=== PATIENT | female | born 1960 | race African-American/Black ===

== ENCOUNTER 2017-03-06 23:04 | Inpatient (IN) ==
[2017-03-07] MEDS ORDERED: SODIUM CHLORIDE 0.9% 1,000 ML IV STA (00:05)
[2017-03-07] MEDS ORDERED: PANTOPRAZOLE 40 MG VIAL IV STA (00:05)
[2017-03-07] MEDS ORDERED: PANTOPRAZOLE 40 MG VIAL IV ONE (00:10)
[2017-03-07 01:18] LABS: Alanine Aminotransferase 26 U/L (13-56); Albumin 3.7 G/DL (3.4-5.0); Alkaline Phosphatase 64 U/L (45-117); Aspartate Amino Transferase 19 U/L (0-37); Bilirubin,Total < 0.39 MG/DL (0.2-1.0); Blood Urea Nitrogen 8 MG/DL (7-18); Calcium 8.9 MG/DL (8.5-10.1); Glucose 98 MG/DL (74-106); Potassium 3.7 MMOL/L (3.5-5.1); Sodium 143 MMOL/L (136-145); Total Protein 7.2 G/DL (6.4-8.3)
--- NOTE | 2017-03-07 01:23 | EKG Report ---
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
[2017-03-07 01:32] LABS: Basophils % 0.6 % (0.0-0.8); Eosinophils # 0.1 10*3/uL (0.0-0.87); Eosinophils % 0.9 % (0.00-10.9); Hematocrit 34.3 VOL% (35.7-47.0); Hemoglobin 11.3 GM/DL (12.0-16.0); Immature Granulocytes % 0.6 %; Immature Granulocytes Absolute 0.04 #; Lymphocytes # 1.8 10*3/uL (1.4-4.0); Mean Corpuscular HGB Conc 32.9 GM/DL (32-36); Mean Corpuscular Hemoglobin 30 PG (27-34); Mean Corpuscular Volume 91.5 FL (87-102); Monocytes # 0.7 10*3/uL (0.11-0.8); Neutrophils % 60.9 % (38.7-73.9); Platelet Count 203 T/CUMM (130-400); Red Blood Count 3.75 MC/CUMM (3.8-5.5); Red Cell Distribution Width 12.5 % (9.3-17.3); White Blood Count 6.6 T/CUMM (4-12)
[2017-03-07] MEDS ORDERED: ONDANSETRON 4 MG/2 ML VIAL IV STA (03:19)
[2017-03-07] MEDS ORDERED: ALUM/MAG/SIMETH/LIDO VISC 1:1 30 ML BOTTLE PO STA (03:20)
[2017-03-07] MEDS ORDERED: ALUM/MAG/SIMETH/LIDO VISC 1:1 30 ML BOTTLE PO ONE (03:25)
[2017-03-07] MEDS ORDERED: ONDANSETRON 4 MG/2 ML VIAL ONE (03:25)
--- NOTE | 2017-03-07 03:48 | Emergency Department Note ---
Arrival - Arrival Chief Complaint: Abdominal / Flank Pain Stated Complaint: severe nausea and discomfort reflux in chest ED Nursing Triage Note: C/O Upper abd pain. Onset Friday. Pt reports that her stomach feels raw inside. Reports taking prescribed meds without relief. +nausea /vomiting. Last BM-2 days ago. Pt reports using an enema to have BM today. Denies fever. Pt reports that she had surgery last Friday to remove bladder sling- Surgery performed at [facility] Mode of Arrival: Ambulatory Time Seen by Provider: 03/07/17 02:33 - History of Present Illness HPI Narrative: This is a 56-year-old female of descent with a history of mitral valve prolapse syndrome kidney stones, gastroesophageal reflux disease, hypothyroidism , anemia, who presents with epigastric abdominal pain radiating to the chest associated with nausea and vomiting. Patient has not had black stools. There is no back pain. There is no diaphoresis nor shortness of breath. She has a history of esophageal stricture which was dilated and biopsies were taken. Date of Last Menstrual Period: PM Allergies/Adverse Reactions: Allergies Allergy/AdvReac Type Severity Reaction Status Date / Time No Known Allergies Allergy Verified 07/02/15 07:57 Home Medications: Home Medications Medication Instructions Recorded Confirmed Type Esomeprazole Magnesium [Nexium] 40 mg PO DAILY 09/25/16 03/06/17 History Citalopram [CeleXA] 20 mg PO DAILY 09/27/16 03/06/17 History Linaclotide [Linzess] 290 mcg PO DAILY 09/27/16 03/06/17 History Pravastatin [Pravachol] 40 mg PO BEDTIME 03/06/17 03/06/17 History Review of System - Review of System Constitutional: Absent: fever, night sweats Eyes: Absent: redness, vision change Head/Ears/Nose/Throat: Absent: earache, epistaxis Cardiovascular: Present: chest pain. Absent: dyspnea on exertion Gastrointestinal: Present: nausea, vomiting. Absent: diarrhea Genitourinary female: Present: dysuria, urgency Musculoskeletal: Absent: joint swelling, lower back pain Skin: Absent: rash Neurological: Absent: numbness, paresthesias Psychiatric: Absent: anxiety, depression Endocrine: Absent: polydipsia, polyuria Hematological/Lymphatic: Absent: easy bruising, lymphadenopathy Allergic/Immunologic: Absent: urticaria, itchy eyes Medical,Surgical,& Family Hx - Medical History Cardio: History of: Cardiac Dysrhythmia, Cardiovascular Problems (mitral valve prolapse) No history of: Hypertension Psychological: History of: Anxiety Disorders, Depression Neurology: No history of: Seizures Endocrine: History of: Thyroid Disorder (has been on thyroid med in past. had reaction) Genitourinary: History of: Kidney Stones Gastrointestinal: History of: GERD, Hemorrhoids, GI Problems (dysphagia) No history of: Hepatitis, Liver Problems Hematology: History of: Anemia No history of: Blood Transfusion Reaction Reproductive: History of: Endometriosis Other: No history of: Anesthesia Reactions, Cancer - Surgical History Cardiac Surgeries: Patient Denies: Cardiac Catheterization HEENT Surgeries: Patient denies: Eye Surgery, Thyroid Surgery, Tonsilectomy & Adenoidectomy Abdominal Surgeries: Surgical HX of: EGD Patient denies: Abdominal Surgery, Appendectomy, Cholecystectomy Reproductive Surgeries: Surgical HX of;: Gynecologic Surgery, Hysterectomy ( left ovary removed) Patient denies;: Breast Surgery, Genitourinary Surgery Orthopedic Surgeries: Surgical HX of;: Orthopedic Surgery (shoulder surgery) - Family History Family History: Denies;: Family Cancer - Social History Smoking Status: Never smoker Frequency of Alcohol Use: None Type of Drug Use: None Exam Vital Signs: Vital Signs Temperature 98.7 F 03/07/17 00:28 Pulse Rate 84 03/07/17 04:07 Respiratory Rate 20 03/07/17 04:07 Blood Pressure 139/84 03/07/17 04:07 O2 Sat by Pulse Oximetry 99 03/07/17 04:07 - Eye Eye exam: Present: PERRL, EOMI - Neck Neck exam: Present: normal inspection, full ROM - Chest Chest inspection: Present: normal inspection - Respiratory Respiratory exam: Present: normal lung sounds bilaterally - Cardiovascular Cardiovascular exam: Present: regular rate, normal rhythm - Abdominal Exam Abdominal exam: Present: other (Epigastric tenderness without guarding or rebound) - Extremities Exam Extremities exam: Present: normal inspection, full ROM - Back Exam Back exam: Present: normal inspection - Neurological Exam Neurological exam: Present: alert, oriented X3, CN II-XII intact - Psychiatric Psychiatric exam: Present: normal affect, normal mood - Skin Skin exam: Present: warm, dry Course Course Narrative: The laboratory tests are normal. 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 Although it appears that the patient's symptoms are more likely to be due to esophageal reflux disease case was discussed with the surgeon who agreed to admit the patient to the hospital for further evaluation. Results - Labs CBC & BMP: 03/07/17 00:15 03/07/17 00:15 Disposition Clinical Impression: Abdominal pain Disposition: Still a Patient Additional Instructions: The laboratory tests are normal. 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 Although it appears that the patient's symptoms are more likely to be due to esophageal reflux disease case was discussed with the surgeon who agreed to admit the patient to the hospital for further evaluation.
[2017-03-07] MEDS ORDERED: ONDANSETRON 4 MG/2 ML VIAL IV PRN (04:13)
[2017-03-07] MEDS ORDERED: ACETAMINOPHEN 325 MG TABLET PO PRN (04:13)
[2017-03-07] MEDS: DEXTROSE 5% LACTATED RINGERS 1,000 ML IV SCH ×3 (05:22→22:05)
--- NOTE | 2017-03-07 07:26 | CT Report ---
CT abdomen pelvis Indication: Pancreatitis Comparison: 13 September 2014 Technique: Axial CT imaging of the abdomen and pelvis is performed with intravenous contrast. Contrast dose is 100 cc of Omnipaque 350. Findings: Left lower lung nodule is present similar to previous CT. Otherwise the cardiac and lung bases are within normal limits. CT abdomen: The liver spleen pancreas and adrenal glands are normal in size and enhancement. No evidence of focal lesion is demonstrated in these solid organs. Kidneys are normal in size and enhancement. Nonobstructing right renal calculi are present similar to previous exam evidence of hydronephrosis or nephrolithiasis is seen. The bowel caliber is normal and no wall thickening or adjacent inflammatory change is seen. No evidence of free fluid or free air is present. Appendix appears normal. There is narrowing of the origin of the celiac axis, appears more prominent than on previous examination. CT pelvis: The pelvic bowel appears within normal limits. Bladder shows no evidence of abnormality. The pelvic organs show no evidence of abnormality Impression: No definite evidence of acute findings demonstrated. Narrowing of the celiac axis origin, increased from previous study could be position related. No other acute findings seen. This CT exam was performed using one or more the following dose reduction techniques: Automated exposure control, adjustment of the MA and/or KV according to patient size, or use of iterative reconstruction technique. PROCEDURE INTERPRETED AT [facility] DEPARTMENT OF RADIOLOGY Final Report Signed by: Dr. Grover Loera
--- NOTE | 2017-03-07 08:06 | EKG Report ---
Stationary ECG Study 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
--- NOTE | 2017-03-07 08:13 | General Surg History&Physical ---
Assessment and Plan (1) Abdominal pain Status: Acute Assessment and plan: This patient reports postprandial abdominal pain that started yesterday and she does have some narrowing of her celiac axis on her CT scan. Median arcuate ligament syndrome certainly is a possibility with this is a very rare entity and must be a diagnosis of exclusion. I will discuss this with interventional radiologist on-call to see if they would be willing to do inspiration and expiration arteriograms to see if this is a component of her disease. I think it would also be worthwhile to get gastroenterology involved and also get an ultrasound and potentially HIDA scan of her gallbladder to look at all the possibilities for what caused her pain. No intervention from surgical standpoint is planned today. Current Visit: Yes History of Present Illness Chief complaint: Abdominal pain History of present illness: Ms. Mcginnis is a 56 year old female who is admitted with abdominal pain postprandial with nausea. She had a bladder sling removed last week. She has not been feeling well since then but the pain worsened yesterday in her stomach and she came to the ER for evaluation. She had a CT scan of her abdomen and pelvis that showed some narrowing of her celiac origin and this was worse than the study that was done about 2 years ago in 2015. It was not occlusive. She has not tried to eat since yesterday and this happened after she try to eat a salad. Home Medications Medication Instructions Recorded Confirmed Type Esomeprazole Magnesium [Nexium] 40 mg PO DAILY 09/25/16 03/06/17 History Citalopram [CeleXA] 20 mg PO DAILY 09/27/16 03/06/17 History Linaclotide [Linzess] 290 mcg PO DAILY 09/27/16 03/06/17 History Pravastatin [Pravachol] 40 mg PO BEDTIME 03/06/17 03/06/17 History Allergies Allergy/AdvReac Type Severity Reaction Status Date / Time No Known Allergies Allergy Verified 07/02/15 07:57 Medical,Surgical,& Family Hx - Medical History Cardio: History of: Cardiac Dysrhythmia, Cardiovascular Problems (mitral valve prolapse) No history of: Hypertension Psychological: History of: Anxiety Disorders, Depression Neurology: No history of: Seizures Endocrine: History of: Thyroid Disorder (has been on thyroid med in past. had reaction) Genitourinary: History of: Kidney Stones Gastrointestinal: History of: GERD, Hemorrhoids, GI Problems (dysphagia) No history of: Hepatitis, Liver Problems Hematology: History of: Anemia No history of: Blood Transfusion Reaction Reproductive: History of: Endometriosis Other: No history of: Anesthesia Reactions, Cancer - Surgical History Cardiac Surgeries: Patient Denies: Cardiac Catheterization HEENT Surgeries: Patient denies: Eye Surgery, Thyroid Surgery, Tonsilectomy & Adenoidectomy Abdominal Surgeries: Surgical HX of: EGD Patient denies: Abdominal Surgery, Appendectomy, Cholecystectomy Reproductive Surgeries: Surgical HX of;: Gynecologic Surgery, Hysterectomy ( left ovary removed) Patient denies;: Breast Surgery, Genitourinary Surgery Orthopedic Surgeries: Surgical HX of;: Orthopedic Surgery (shoulder surgery) - Family History Family History: Denies;: Family Cancer - Social History Smoking Status: Never smoker Frequency of Alcohol Use: None Type of Drug Use: None Exam - Constitutional Vitals: Period Temp Pulse Resp BP Sys/Garrido Pulse Ox Last 24 Hr 98.7 F-99.2 F 80-99 16-20 108-139/72-87 98-100 General appearance: no acute distress, over weight - Head Head exam: Present: normal inspection, normocephalic - Eye Eye exam: Present: EOMI Pupils: Present: MO - ENT ENT exam: Present: normal exam Mouth exam: Present: normal external inspection, normal voice - Neck Neck exam: Present: normal inspection, trachea midline - Respiratory Respiratory exam: Present: clear to auscultation bilaterally. Absent: accessory muscle use, chest wall tenderness - Cardiovascular Cardiovascular exam: Present: RRR. Absent: systolic murmur, tachycardia - GI/Abdominal GI/Abdominal exam: Present: normal bowel sounds, soft. Absent: tenderness, rebound - Extremities Exam Extremities exam: Present: normal inspection, normal capillary refill - Back Exam Back exam: Present: normal inspection - Neurological Exam Neurological exam: Present: alert, oriented X3 Speech: Present: normal - Skin Skin exam: Present: normal color, warm - Constitutional Constitutional: Present: as per HPI - EENT Nose, mouth and throat: Present: as per HPI - Cardiovascular Cardiovascular: Present: as per HPI - Respiratory Respiratory: Present: as per HPI - Gastrointestinal Gastrointestinal: Present: as per HPI - Genitourinary Genitourinary: Present: as per HPI - Musculoskeletal Musculoskeletal: Present: as per HPI - Neurological Neurological: Present: as per HPI - Endocrine Endocrine: Present: as per HPI Hematologic/Lymphatic: Present: as per HPI Quality Measures - VTE Contraindication to Pharmacological VTE Prophylaxis: High Risk of Bleeding Results - Labs CBC & BMP: 03/07/17 00:15 03/07/17 00:15
[2017-03-07] MEDS: PANTOPRAZOLE 40 MG TABLET PO SCH (08:43)
--- NOTE | 2017-03-07 10:45 | Ultrasound Report ---
Right upper quadrant ultrasound Indication: Abdominal Pain Findings: The liver is normal in size and echogenicity. The gallbladder is fluid-filled without evidence of stones or sludge. The gallbladder wall thickness is 1.0 mm . The common bile duct measures 1.0 mm. The visualized portion of the pancreas appear within normal limits The right kidney is normal in size and echogenicity and measures 10.4 cm . No free fluid or free air seen. Impression: No evidence of abnormality demonstrated. Ultrasound images stored and captured. PROCEDURE INTERPRETED AT [facility] DEPARTMENT OF RADIOLOGY Final Report Signed by: Dr. Grover Loera
--- NOTE | 2017-03-07 11:22 | Event Note ---
Interventional radiology consult note: Ms. Mcginnis is a pleasant 56-year-old female who has history of esophageal stricture and is getting yearly EGD with esophageal dilatation reportedly last done in September of this year by Dr. Luis Manuel Morales. She was admitted with abdominal pain which she describes as a "raw" feeling primarily within the central upper abdomen. She also reports reflux. She has had some nausea and minimal vomiting as well. Today the pain is reportedly better with most complaints related to her midline chest, possibly related to reflux or hernia history of esophageal stricture and/or dilatation. She does report that she has had some association of eating with her abdominal pain although this is not consistent on a daily basis. Additionally she has gained approximately 5 pounds in the last 6 months. She does not take any narcotic pain medicine for her abdominal discomfort. At times she will take antacids or Carafate solution with some improvement. She does report that this episode of her abdominal discomfort is the worst is ever been but she has had similar issues for at least 6 months if not somewhat longer. She also reports chronic constipation. Recently, she just had bladder suspension surgery reversal and has chronic UTIs and is on chronic antibiotics for this. Her imaging is suspicious for median arcuate ligament syndrome with severe (85% ) stenosis at the proximal celiac artery, which appears somewhat progressed when compared to the [address]. Additionally, there is no suggestion of any significant atherosclerotic disease within the vasculature as the cause of the stenosis. No diarrhea. Physical exam demonstrates minimal tenderness in the epigastric region but is otherwise negative. She has no fevers and is not short of breath. ROS otherwise negative. Assessment/plan: 1. Abdominal pain: Given her somewhat complicated GI history of esophageal strictures and recurrent UTIs with chronic antibiotic therapy, possibility of other factors contributing to her abdominal pain are noted. GI consult is in process. She may need a barium esophagram. Right upper quadrant ultrasound is negative. 2. Celiac artery stenosis: Although the images are suspicious for an underlying median arcuate ligament syndrome, the history does not completely correlate. However, if all other studies prove negative, inspiratory and expiratory angiography may be necessary to completely exclude this possibility. If this is the case, stenting is not indicated and surgical release would be needed.
--- NOTE | 2017-03-07 11:54 | Gastrointestinal Consult Note ---
<Alexus Hagan - Last Filed: 03/07/17 11:52> Assessment and Plan (1) Abdominal pain Status: Acute Assessment and plan: 03/07-sudden onset of abdominal pain with associated nausea. CT findings noted as below. Ultrasound also noted as below. HIDA scan is pending at this time. We will tentatively plan for EGD on Friday to further evaluate. Plan an addendum to followed by Dr. Morales. Current Visit: Yes History of Present Illness Chief complaint: Abdominal pain History of present illness: Ms. Mcginnis is a 56 year old female who was admitted to the hospital early this morning with complaints of abdominal pain beginning yesterday. Patient has a prior history of mitral valve prolapse, kidney stones, GERD, anemia, hypothyroidism. Patient states she has her usual state of health until yesterday when after eating a salad she began not feeling well. She states that ultimately she has not felt well for the past week Yesterday She Had an Onset of Abdominal Pain that was associated with nausea. She states that the pain was severe in nature, located primarily in the mid upper abdomen, however she had no changes in her bowel habits with this. She denies any fever or chills associated with this. She denies any recent weight loss, melena, hematochezia. She states the pain continued throughout the day and she came in early this morning. On admission, she had a CT of the abdomen with contrast which showed no acute findings other than a narrowing of the celiac at 6 origin which was a change from a prior CT study. She has had an abdominal ultrasound done this morning as well with no abnormalities and she is currently undergoing a HIDA scan. Dr. Brumfield was consulted and has discussed with interventional radiology regarding proceeding with possible inspiration/expiration arteriogram due to the findings of the CT. At this time he continues further testing to rule out other possibilities of sources for her pain. She has had prior endoscopy done by Dr. Morales with last known EGD in September of this year with findings of GERD and esophageal stricture with dilation. Patient has had multiple dilations in the past for dysphagia. Home Medications Medication Instructions Recorded Confirmed Type Esomeprazole Magnesium [Nexium] 40 mg PO DAILY 09/25/16 03/06/17 History Citalopram [CeleXA] 20 mg PO DAILY 09/27/16 03/06/17 History Linaclotide [Linzess] 290 mcg PO DAILY 09/27/16 03/06/17 History Pravastatin [Pravachol] 40 mg PO BEDTIME 03/06/17 03/06/17 History Allergies Allergy/AdvReac Type Severity Reaction Status Date / Time No Known Allergies Allergy Verified 07/02/15 07:57 Medical,Surgical,& Family Hx - Medical History Cardio: History of: Cardiac Dysrhythmia, Cardiovascular Problems (mitral valve prolapse) No history of: Hypertension Psychological: History of: Anxiety Disorders, Depression Neurology: No history of: Seizures Endocrine: History of: Thyroid Disorder (has been on thyroid med in past. had reaction) Genitourinary: History of: Kidney Stones Gastrointestinal: History of: GERD, Hemorrhoids, GI Problems (dysphagia) No history of: Hepatitis, Liver Problems Hematology: History of: Anemia No history of: Blood Transfusion Reaction Reproductive: History of: Endometriosis Other: No history of: Anesthesia Reactions, Cancer - Surgical History Cardiac Surgeries: Patient Denies: Cardiac Catheterization HEENT Surgeries: Patient denies: Eye Surgery, Thyroid Surgery, Tonsilectomy & Adenoidectomy Abdominal Surgeries: Surgical HX of: EGD Patient denies: Abdominal Surgery, Appendectomy, Cholecystectomy Reproductive Surgeries: Surgical HX of;: Gynecologic Surgery, Hysterectomy ( left ovary removed) Patient denies;: Breast Surgery, Genitourinary Surgery Orthopedic Surgeries: Surgical HX of;: Orthopedic Surgery (shoulder surgery) - Family History Family History: Denies;: Family Cancer - Social History Smoking Status: Never smoker Frequency of Alcohol Use: None Type of Drug Use: None 12 point system: reviewed and no additional remarkable complaints except as stated - Constitutional Constitutional: Present: as per HPI - EENT Eyes: Present: as per HPI Ears: Present: as per HPI Nose, mouth and throat: Present: as per HPI - Cardiovascular Cardiovascular: Present: as per HPI - Respiratory Respiratory: Present: as per HPI - Gastrointestinal Gastrointestinal: Present: as per HPI, abdominal pain, nausea - Genitourinary Genitourinary: Present: as per HPI - Musculoskeletal Musculoskeletal: Present: as per HPI - Neurological Neurological: Present: as per HPI - Psychiatric Psychiatric: Present: as per HPI - Endocrine Endocrine: Present: as per HPI - Hematologic/Lymphatic Hematologic/Lymphatic: Present: as per HPI Exam - Constitutional Vitals: Period Temp Pulse Resp BP Sys/Garrido Pulse Ox Last 24 Hr 98.7 F-99.2 F 80-99 16-20 108-139/72-87 98-100 General appearance: normal weight, no acute distress - Head Head exam: Present: normal inspection, normocephalic - Eye Eye exam: Present: other (Lids and conjunctival are unremarkable). Absent: scleral icterus - ENT ENT exam: Present: normal exam, normal oropharynx - Neck Neck exam: Present: normal inspection - Respiratory Respiratory exam: Present: clear to auscultation bilaterally. Absent: rales, rhonchi, wheezes - Cardiovascular Cardiovascular exam: Present: regular rate and rhythm. Absent: diastolic murmur , JVD, systolic murmur - GI/Abdominal GI/Abdominal exam: Present: normal bowel sounds, soft. Absent: ascites, distended, mass, organomegaly, tenderness - Extremities Exam Extremities exam: Present: normal inspection, full ROM - Back Exam Back exam: Present: normal inspection - Neurological Exam Neurological exam: Present: alert, oriented X3 - Psychiatric Psychiatric exam: Present: normal affect, normal mood - Skin Skin exam: Present: normal color, warm, dry Results - Labs CBC & BMP: 03/07/17 00:15 03/07/17 00:15 Lab Results: I have reviewed the past 24 hour labs - Diagnostic Findings Procedure: CT Abdomen and Pelvis: report reviewed by me, Ultrasound: report reviewed by me Quality Measures - VTE Contraindication to Pharmacological VTE Prophylaxis: High Risk of Bleeding <Vinny Morales - Last Filed: 03/07/17 13:04> History of Present Illness Chief complaint: 3030 History of present illness: Ms. Mcginnis is a 56 year old female Exam - Constitutional Vitals: Period Temp Pulse Resp BP Sys/Garrido Pulse Ox Last 24 Hr 98.7 F-99.2 F 80-99 16-20 108-139/72-87 98-100 Results - Labs CBC & BMP: 03/07/17 00:15 03/07/17 00:15
--- NOTE | 2017-03-07 12:53 | Nuclear Medicine Report ---
Hepatobiliary Scan with Ejection Fraction Date Performed: 03/05/2017 Radiopharmaceutical: 5 mCi Tc-99m Mebrofenin I.V. 8 ounces ensure was administered orally. Clinical Information: 56 years old Female with crampy abdominal pain and history of esophageal stricture status post dilatation with nausea and some vomiting. Gallbladder ultrasound is negative. Comparison: None Technique: Two minute dynamic images were obtained for 60 minutes after injection of tracer. Findings: Normal radiotracer uptake throughout hepatic parenchyma with excretion and visualization of the gallbladder at 15-20 minutes. There is also visualization of small bowel at 20-25 minutes compatible with patent common duct. The computed gallbladder ejection fraction is 32% (normal is greater than or equal to 38%) Conclusion: Nonspecific mildly reduced gallbladder ejection fraction, possibly due to recent limited p.o. intake. No evidence of cystic or common duct obstruction. PROCEDURE INTERPRETED AT [facility] DEPARTMENT OF RADIOLOGY Final Report Signed by: Jose Steve
[2017-03-07 14:20] LABS: Apearance,Urine CLEAR (Clear); Bilirubin,Urine Negative (Negative); Blood, Urine Small mg/dL (Negative); Glucose,Urine (UA) Negative (Negative); Ketones,Urine Negative (Negative); Mucus,Urine Occasional /LPF (Occasional); Nitrite,Urine Negative (Negative); Protein,Urine Negative; RBC,Urine 8 /HPF (0-4); Squamous Epithelial Cell,Urine Occasional /HPF (0-10); Urine Color Straw (Yellow); Urine Specific Gravity 1.009 (1.001-1.035); Urine Urobilinogen < 2.0 EU/DL (0.2-1.0); WBC,Urine 4 /HPF (0-6)
[2017-03-08] MEDS: DEXTROSE 5% LACTATED RINGERS 1,000 ML IV SCH (06:48)
[2017-03-08] MEDS: PANTOPRAZOLE 40 MG TABLET PO SCH (08:49)
--- NOTE | 2017-03-08 17:13 | Event Note ---
03/08/2017 Patient is doing better nontender complaining of no nausea or discomfort. We will advance her to some full liquids and see how she does at this time. Biliary workup has been negative and she is scheduled for an EGD on Friday.
[2017-03-09] MEDS: DEXTROSE 5% LACTATED RINGERS 1,000 ML IV SCH ×3 (00:40→08:50)
--- NOTE | 2017-03-09 07:46 | Gastrointestinal Progress Note ---
Assessment and Plan - Time spent with patient Time spent with patient: Greater than 30 minutes (1) Abdominal pain Status: Acute Current Visit: Yes (2) Other specified counseling Status: Acute Current Visit: Yes Exam (Progress Note) - Constitutional Vitals: Period Temp Pulse Resp BP Sys/Garrido Pulse Ox Last 24 Hr 97.0 F-99.3 F 64-87 18-20 103-121/65-87 95-99 Results - Labs CBC & BMP: 03/07/17 00:15 03/07/17 00:15 Note Addendum: PLEASE NOTE -- automatic citation of patient information is unavoidable in this electronic note. I have made a reasonable effort to review the information cited , but it is not a part of my evaluation, impression, or recommendation unless specifically discussed in the dictated text that follows. As well, voice recognition software was used in the creation of this clinical note. Reasonable effort was made to identify and correct gross errors. Despite proofreading, errors in balance bridge inspector may be present, including nonsense verbiage at times. If you encounter such an error, please contact me at for discussion and correction. -- Mark Chief complaint: abdominal pain Subjective: the patient is a 56-year-old female seen for follow-up of abdominal pain. The patient reports feeling better this morning. She is tolerating a clear liquid diet without difficulty. She is having bowel movements that are normal. She is anticipating upper endoscopy tomorrow. Medications: Tylenol, activated ringers, Sweet Water, Zofran, Protonix Review of Symptoms: 12 point review of symptoms was negative except as noted above Physical examination: Vital Signs: Current vital signs reviewed. General Appearance: lying in bed. Comfortable. No apparent distress. Head: Normocephalic. Eyes: no scleral icterus. No scleral injection. No conjunctival pallor. Oral Cavity: Odor of breath was normal. No drooling was observed. Lips showed no abnormalities. Lungs: Respiration rhythm and depth was normal. Cardiovascular: Heart rate and rhythm were normal. Abdomen: abdomen was not distended. Abdominal auscultation revealed no abnormalities. Ascites was not discovered. Abdominal palpation revealed no tenderness and no hepatosplenomegaly. Musculoskeletal System: musculoskeletal system was grossly normal. Neurological: level of consciousness was normal. Speech was normal. No coordination/cerebellum abnormalities were noted. Skin: Gen. appearance was normal. Color and pigmentation were normal. No skin lesions were appreciated. Laboratory: no new labs today Radiology: -- HIDA scan, 03/07/17: nonspecific mildly reduced gallbladder ejection fraction ; no evidence of cystic or common duct obstruction -- abdominal ultrasound, 03/07/17: no evidence of abnormality -- CT of the abdomen and pelvis, 03/07/17: no definite evidence of acute findings ; narrowing of the celiac axis origin Impressions: #1. Abdominal pain -- the patient is improving significantly compared to her admission. We will proceed with upper endoscopy as scheduled and follow-up with further recommendations as indicated. #2. Other specified counseling -- Patient seen for greater than 30 minutes. Greater than 50% of this time was spent counseling regarding differential diagnosis, likely diagnosis,, diagnostic and therapeutic options, risks, benefits, and alternatives to procedures and medications, informed consent, and plan of care generally. Patient has expressed understanding and wishes to proceed. Recommendations: -- continue supportive care -- continued clear liquid diet -- upper endoscopy tomorrow -- we will continue to follow with you. Dr. Morales will resume G.I. care for this patient tomorrow
[2017-03-09] MEDS: PANTOPRAZOLE 40 MG TABLET PO SCH (08:48)
--- NOTE | 2017-03-09 10:47 | Event Note ---
03/09/2017 1030 hrs. Patient is doing well with minimal discomfort tolerating her full liquids without problems. She apparently scheduled for an EGD in the morning and disposition related to that.
[2017-03-10] MEDS: DEXTROSE 5% LACTATED RINGERS 1,000 ML IV SCH ×5 (00:28→14:43)
[2017-03-10 06:08] LABS: Basophils % 0.6 % (0.0-0.8); Eosinophils # 0.1 10*3/uL (0.0-0.87); Eosinophils % 1.7 % (0.00-10.9); Hemoglobin 10.8 GM/DL (12.0-16.0); Immature Granulocytes % 0.4 %; Immature Granulocytes Absolute 0.02 #; Lymphocytes # 1.8 10*3/uL (1.4-4.0); Lymphocytes % 34.2 % (21.3-54.2); Mean Corpuscular HGB Conc 32.7 GM/DL (32-36); Mean Corpuscular Hemoglobin 30 PG (27-34); Mean Corpuscular Volume 90.9 FL (87-102); Mean Platelet Volume 10.3 FL (9.6-12.0); Monocytes # 0.5 10*3/uL (0.11-0.8); Monocytes % 10.1 % (1.7-12.7); Neutrophils # 2.8 10*3/uL (1.4-7.4); Platelet Count 178 T/CUMM (130-400); Red Blood Count 3.63 MC/CUMM (3.8-5.5); Red Cell Distribution Width 12.3 % (9.3-17.3); White Blood Count 5.3 T/CUMM (4-12)
[2017-03-10 06:48] LABS: Albumin 2.9 G/DL (3.4-5.0); Bilirubin,Total 0.5 MG/DL (0.2-1.0); Osmolality,Calculated 281.8 MOS/KG (273-304); Potassium 3.7 MMOL/L (3.5-5.1); Total Protein 5.9 G/DL (6.4-8.3)
--- NOTE | 2017-03-10 07:18 | General Surgery Progress Note ---
Assessment and Plan (1) Abdominal pain Status: Acute Assessment and plan: Plan for endoscopy today. Patient may benefit from inspiration and expiration arteriograms to evaluate for median arcuate ligament syndrome if endoscopy is negative. I do not think her minimally decreased ejection fraction explains the pain that she is having. Current Visit: Yes Subjective Patient reports: Present: no new complaints, still having pain, tolerating liquids well, afebrile. Absent: nausea, vomiting Narrative: HIDA scan demonstrates ejection fraction of 32% on Friday. Gallbladder ultrasound was negative. Exam - Constitutional Vitals: Period Temp Pulse Resp BP Sys/Garrido Pulse Ox Last 24 Hr 97.5 F-99.0 F 60-79 18-20 105-128/63-79 94-98 General appearance: no acute distress, over weight - Head Head exam: Present: normal inspection, normocephalic - Eye Eye exam: Present: EOMI Pupils: Present: MO - ENT ENT exam: Present: normal exam Mouth exam: Present: normal external inspection, normal voice - Neck Neck exam: Present: normal inspection, trachea midline - Respiratory Respiratory exam: Present: clear to auscultation bilaterally. Absent: accessory muscle use, chest wall tenderness - Cardiovascular Cardiovascular exam: Present: RRR. Absent: systolic murmur, tachycardia - GI/Abdominal GI/Abdominal exam: Present: soft. Absent: tenderness, rebound - Extremities Exam Extremities exam: Present: normal inspection, normal capillary refill - Back Exam Back exam: Present: normal inspection - Neurological Exam Speech: Present: normal - Skin Skin exam: Present: normal color, warm Results - Labs CBC & BMP: 03/10/17 05:40 03/10/17 05:40 Quality Measures - VTE Contraindication to Pharmacological VTE Prophylaxis: High Risk of Bleeding
[2017-03-10] MEDS: PANTOPRAZOLE 40 MG TABLET PO SCH (09:33)
[2017-03-10] MEDS ORDERED: LIDOCAINE 2% 5 ML VIAL ONE (11:05)
[2017-03-10] MEDS ORDERED: PROPOFOL 200 MG/20 ML VIAL IV ONE (11:05)
--- NOTE | 2017-03-10 11:17 | Operative Note ---
Date of procedure: 03/10/17 Pre-op diagnosis: Epigastric pain Procedure: EGD 56-year-old female with persistent epigastric pain now for upper endoscopy to further evaluate. Informed consent was obtained the patient She was sedated with general anesthesia per anesthesia protocol. Patient placed left lateral decubitus position the Olympus flexible video upper endoscope was inserted into the oral cavity under direct vision the esophagus was intubated. Findings Esophagus-normal proximal mid esophageal mucosa distal esophagus with small hiatal hernia no significant esophagitis or stricture was seen Stomach-normal insufflation normal mucosa to direct retroflexed views of the body fundus cardia and antrum the stomach. Pylorus-normal Duodenum-normal from the bulb and duodenum to the third portion of the duodenum. The procedure was terminated placed our procedure well she is discharge recovery in good condition. Postop diagnosis: 1. Gastroesophageal reflux disease with small hiatal hernia-continue PPI treatment and antireflux precautions. Anesthesia: other (General) Surgeon / Physician: Vinny Morales Estimated blood loss: none Specimens: none sent Condition: stable Disposition: post procedure unit Results - Labs CBC & BMP: 03/10/17 05:40 03/10/17 05:40 Discharge Plan - Discharge Medications No Action Esomeprazole Magnesium [Nexium] 40 mg PO DAILY Citalopram [CeleXA] 20 mg PO DAILY Linaclotide [Linzess] 290 mcg PO DAILY Pravastatin [Pravachol] 40 mg PO BEDTIME - Follow Up or Referral - Forms/Instructions
--- NOTE | 2017-03-10 11:23 | Anesthesia Post-Op ---
Anesthesia Post OP - Post Ansesthetic Evaluation Patient seen in post op: Yes Resp: within normal limits CV: within normal limits Mental: within normal limits Temp: within normal limits Ozsu-[id number]-Dvrlegbio: within normal limits Nausea and Vomiting: within normal limits Pain: within normal limits
--- NOTE | 2017-03-10 14:20 | Discharge Summary ---
Hospital Course - Hospital Course Hospital Course: Patient is a 56-year-old female who presented to the hospital with persistent postprandial epigastric pain associated with nausea. 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 Considering the rarity of the this condition, further evaluation was performed to rule out other etiologies of her pain. Abdominal ultrasound revealed no significant findings, and HIDA scan revealed minimally reduced gallbladder function with an EF of 32% . Patient has a history of esophageal stricture requiring dilatation in the past, so EGD was performed. With the EGD there was gastroesophageal reflux disease noted and a small hiatal hernia. Recommend the patient be discharged on a PPI daily. With no critical or surgical indications, the patient was able to tolerate full liquid diet orally and was discharged home for further evaluation. Dr. Brumfield will schedule further evaluation through [facility] on an outpatient basis through his clinic. The patient was discharged home in good condition with instructions to advance her diet as tolerated. Diagnosis - Discharge Diagnosis (1) Abdominal pain Status: Acute Specialty Discharge - Follow Up or Referrals Follow up with: Donovan Brumfield MD [Physician] - (Dr. Brumfield will arrange outpatient follow-up through his clinic. If you do not have a follow-up appointment scheduled within 1 wk, notify his office. ) Discharge Plan - Discharge Data Disposition: Disch To Home/Self Care Condition at Discharge: Stable Discharge Diet: other (Diet as tolerated. Full liquid and soft diet information as below.) Contact your physician if you experience:: fever over 101, Difficulty voiding, Nausea/Vomiting, pain uncontrolled by pain medications - Discharge Medications New Pantoprazole Tab [Protonix Tab] 40 mg PO DAILY #30 tablet Continue Citalopram [CeleXA] 20 mg PO DAILY Linaclotide [Linzess] 290 mcg PO DAILY Pravastatin [Pravachol] 40 mg PO BEDTIME Discontinued Esomeprazole Magnesium [Nexium] 40 mg PO DAILY - Follow Up or Referral Follow Up: Donovan Brumfield MD [Physician] - (Dr. Brumfield will arrange outpatient follow-up through his clinic. If you do not have a follow-up appointment scheduled within 1 wk, notify his office. ) - Forms/Instructions Instructions: Soft Diet (DC), Complete Blenderized Diet (DC) Exam - Constitutional Vitals: Period Temp Pulse Resp BP Sys/Garrido Pulse Ox Last 24 Hr 97.5 F-98.8 F 63-94 13-20 108-128/72-088 94-100 General appearance: no acute distress - Respiratory Respiratory exam: Present: clear to auscultation bilaterally - Cardiovascular Cardiovascular exam: Present: regular rate and rhythm - GI/Abdominal GI/Abdominal exam: Present: normal bowel sounds, soft. Absent: distended, guarding, tenderness - Extremities Exam Extremities exam: Absent: calf tenderness, edema - Neurological Exam Neurological exam: Present: alert, oriented X3 - Psychiatric Psychiatric exam: Present: normal affect, normal mood - Skin Skin exam: Present: normal color Discharge Results Procedures and tests throughout hospitalization: See hospital course EGD with Dr. Vinny Morales on 03/10/2017 Labs on day of discharge: Labs from last 24 hours 03/10/17 03/10/17 05:40 05:40 WBC 5.3 RBC 3.63 L Hgb 10.8 L Hct 33.0 L MCV 90.9 MCH 30 MCHC 32.7 RDW 12.3 Plt Count 178 MPV 10.3 Neut % (Auto) 53.0 Lymph % (Auto) 34.2 [place] % (Auto) 10.1 Eos % (Auto) 1.7 Baso % (Auto) 0.6 Neut # (Auto) 2.8 Lymph # (Auto) 1.8 [place] # (Auto) 0.5 Eos # (Auto) 0.1 Baso # (Auto) 0.0 Immature Gran % 0.4 Nucleated RBC % 0.0 Immature Gran # 0.02 Nucleated RBCs # 0.00 Immature Plt Fraction 0.0 Sodium 144 Potassium 3.7 Chloride 108 H Carbon Dioxide 28 Anion Gap 11.7 BUN 2 L Creatinine 0.60 GFR Calculation 123 BUN/Creatinine Ratio 3.00 L Glucose 91 Calculated Osmolality 281.8 Calcium 9.0 Total Bilirubin 0.50 AST 17 ALT 20 Alkaline Phosphatase 54 Total Protein 5.9 L Albumin 2.9 L Globulin 3.0 Albumin/Globulin Ratio 0.9 L DS: Provider Date of admission: 03/07/17 04:13 Primary care physician: . No PCP Attending physician on admission: Donovan Brumfield MD Consults: 03/07/17 08:15 Consult to Physician [CONS] Routine Comment: upper abdominal pain, nausea, reflux history Consulting Provider: Vinny Morales Consulting Provider Notified: Yes When should Consulting Provider be notified: Now Person Notified: ilda called Date Notified: 03/07/17 Time Notified: 08:58 Discharging clinician: Addis Fields PA-C
[2017-03-10 16:22] VITALS: BP 129/75
== END 2017-03-10 17:26 | disposition home or self-care (01) | DRG 392 ==
LOC: N.ED 23:04 → N.EDINP 03-07 04:13 → N.3E 03-07 04:27
PROVIDERS: ADMIT Surgery; ATTEND Surgery